=== PATIENT | female | born 2000 | race American Indian/Alaskan Native ===

== ENCOUNTER 2021-08-27 18:13 | Emergency (ER) | payer MEDICAID ==
--- NOTE | 2021-08-27 20:48 | Emergency Department Report ---
ED Female HPI - General Chief complaint: Abdominal Pain Stated complaint: KIDNEY INFECTION Time Seen by Provider: 08/27/21 20:28 Source: patient Mode of arrival: Ambulatory Limitations: No Limitations - History of Present Illness Initial comments: Patient 21-year-old female who presents with right flank pain radiating to right suprapubic. Patient has history of frequent UTI. Patient patient believes she has UTI at this time. There is no fevers no chills no nausea no vomiting. There is no vaginal discharge. There is urinary frequency urgency and dysuria. Symptoms have been exacerbated by voiding. Symptoms are relieved by nothing tried. MD Complaint: dysuria - Related Data Previous Rx's Medication Instructions Recorded Last Taken Type Acetaminophen [Tylenol] 650 mg PO Q6H PRN #30 cap 08/28/21 Unknown Rx Dicyclomine [Bentyl] 10 mg PO QID #30 capsule 08/28/21 Unknown Rx cephALEXin [Keflex] 500 mg PO BID 7 Days #14 cap 08/28/21 Unknown Rx Allergies Allergy/AdvReac Type Severity Reaction Status Date / Time No Known Allergies Allergy Verified 08/27/21 19:50 ED Review of Systems ROS: Stated complaint: KIDNEY INFECTION Other details as noted in HPI Constitutional: denies: chills, fever Eyes: denies: eye pain, eye discharge, vision change ENT: denies: ear pain, throat pain Respiratory: denies: cough, shortness of breath, wheezing Cardiovascular: denies: chest pain, palpitations Endocrine: no symptoms reported Gastrointestinal: abdominal pain. denies: nausea, vomiting Genitourinary: urgency, dysuria, frequency. denies: hematuria, discharge Musculoskeletal: back pain Skin: denies: rash, lesions Neurological: denies: headache, weakness, paresthesias Psychiatric: denies: anxiety, depression Hematological/Lymphatic: denies: easy bleeding, easy bruising ED Past Medical Hx - Past Medical History Previous Medical History?: No - Surgical History Past Surgical History?: No - Medications Home Medications: Home Medications Medication Instructions Recorded Confirmed Last Taken Type Acetaminophen [Tylenol] 650 mg PO Q6H PRN #30 cap 08/28/21 Unknown Rx Dicyclomine [Bentyl] 10 mg PO QID #30 capsule 08/28/21 Unknown Rx cephALEXin [Keflex] 500 mg PO BID 7 Days #14 cap 08/28/21 Unknown Rx ED Physical Exam - General Limitations: No Limitations General appearance: alert, in no apparent distress - Head Head exam: Present: atraumatic, normocephalic - Eye Eye exam: Present: normal appearance, EOMI Pupils: Present: normal accommodation - ENT ENT exam: Present: mucous membranes moist - Neck Neck exam: Present: normal inspection, full ROM. Absent: tenderness - Respiratory Respiratory exam: Present: normal lung sounds bilaterally. Absent: respiratory distress, wheezes, stridor, chest wall tenderness - Cardiovascular Cardiovascular Exam: Present: regular rate, normal rhythm, normal heart sounds. Absent: systolic murmur, diastolic murmur, rubs, gallop - GI/Abdominal GI/Abdominal exam: Present: soft, normal bowel sounds. Absent: distended, tenderness, guarding, rebound, rigid - Rectal Rectal exam: Present: deferred - Extremities Exam Extremities exam: Present: normal inspection - Back Exam Back exam: Present: normal inspection, full ROM, CVA tenderness (L). Absent: C VA tenderness (R) - Neurological Exam Neurological exam: Present: alert, oriented X3, CN II-XII intact, normal gait - Expanded Neurological Exam Expanded Patient oriented to: Present: person, place, time Best Eye Response (Miguel): (4) open spontaneously Best Motor Response (Miguel): (6) obeys commands Best Verbal Response (Miguel): (5) oriented Miguel Total: 15 - Psychiatric Psychiatric exam: Present: normal affect, normal mood - Skin Skin exam: Present: warm, dry, intact, normal color. Absent: rash ED Medical Decision Making - Lab Data Labs 08/27/21 20:38 Urine Color Yellow Urine Turbidity Clear Urine pH 5.0 Ur Specific Etlan 1.013 Urine Protein <15 mg/dl Urine Glucose (UA) Neg Urine Ketones Tr Urine Blood Neg Urine Nitrite Neg Urine Bilirubin Neg Urine Urobilinogen < 2.0 Ur Leukocyte Esterase Neg Urine WBC (Auto) 3.0 Urine RBC (Auto) < 1.0 Hyaline Casts 1 Urine Mucus Few - Medical Decision Making UA noted normal there is no vaginal discharge no fevers no chills no dysuria frequency or hematuria. Plan treat for dysuria. Patient will follow up with primary care doctor in 2 to 3 days. Patient verbalized agreement and understanding with discharge plan. Patient DC'd home in stable condition at this time. Critical care attestation.: If time is entered above; I have spent that time in minutes in the direct care of this critically ill patient, excluding procedure time. ED Disposition Clinical Impression: Dysuria Abdominal pain Qualifiers: Abdominal location: generalized Qualified Code(s): R10.84 - Generalized abdominal pain Disposition: 01 HOME / SELF CARE / HOMELESS Is pt being admited?: No Does the pt Need Aspirin: No Condition: Stable Instructions: Abdominal Pain (ED), Abdominal Pain, Adult, Dysuria Additional Instructions: Take medications as prescribed, follow-up with your doctor in 2 to 3 days. Return to emergency department should symptoms worsen. Prescriptions: Dicyclomine [Bentyl] 10 mg PO QID #30 capsule cephALEXin [Keflex] 500 mg PO BID 7 Days #14 cap Acetaminophen [Tylenol] 650 mg PO Q6H PRN #30 cap PRN Reason: Pain Referrals: PALOMA LEE MD [Staff Physician] - 3-5 Days Forms: Work/School Release Form(ED) Time of Disposition: 01:22
[2021-08-27 22:59] LABS: Bilirubin,Urine NEG (Negative); Blood,Urine NEG (Negative); Color,Urine Yellow (Yellow); Hyaline Casts,Urine 1 /LPF; Mucus,Urine FEW /HPF; Protein,Urine <15 mg/dL mg/dL (Negative); RBC,Urine < 1.0 /HPF (0.0-6.0); Urobilinogen,Urine < 2.0 mg/dL (<2.0)
[2021-08-28] MEDS ORDERED: ACETAMINOPHEN W/CODEINE 300-30 MG TAB PO ONE (02:08)
[2021-08-28 03:07] VITALS: BP 114/78
== END 2021-08-28 03:09 | disposition home or self-care (01) ==
LOC: ED 18:13
DX: R30.0 Dysuria (principal); R10.9 Unspecified abdominal pain
CPT/HCPCS: 81001; 99283